=== PATIENT | female | born 1995 ===

== ENCOUNTER 2018-08-04 12:13 | Emergency (ER) | payer SELFPAY ==
[2018-08-04 12:19] VITALS: BMI 39.7
[2018-08-04 13:54] LABS: BASO % 0.1 % (0.0-2.0); EOS % 0.5 % (0.0-4.0); HEMOGLOBIN 14.2 g/dL (12.0-16.0); LYMPH # 2.5 K/uL (1.0-4.3); LYMPH % 27.9 % (20.0-40.0); MEAN CELL VOLUME 88.7 fl (81.0-99.0); MEAN CORPUSCULAR HEMOGLOBIN 29.8 pg (27.0-31.0); MEAN CORPUSCULAR HGB CONC 33.6 g/dL (33.0-37.0); MEAN PLATELET VOLUME 8.1 fl (7.2-11.7); MONO # 0.7 K/uL (0.0-0.8); MONO % 7.4 % (0.0-10.0); NEUT # 5.7 K/uL (1.8-7.0); NEUT % 64.1 % (50.0-75.0); NRBC % 0.1 % (0.0-0.0); RBC 4.78 Mil/uL (3.80-5.20); RED CELL DISTRIBUTION WIDTH 13.9 % (11.5-14.5)
[2018-08-04 14:12] LABS: ALB/GLOB RATIO 1.4 (1.0-2.1); ALBUMIN 4.3 g/dL (3.5-5.0); ALT/SGPT 78 U/L (9-52); AST/SGOT 49 U/L (14-36); BLOOD UREA NITROGEN 12 mg/dl (7-17); CALCIUM 9.5 mg/dL (8.4-10.2); GFR NON-AFRICAN AMERICAN > 60; LIPASE 58 U/L (23-300)
[2018-08-04] MEDS ORDERED: Alum-Mag Hydrox-Simethicone Susp (30 mL) PO ONE (14:17)
[2018-08-04] MEDS ORDERED: Sodium Chloride 0.9% 1,000 ML IV SCH (14:30)
[2018-08-04] MEDS ORDERED: Alum-Mag Hydrox-Simethicone Susp (30 mL) ONE (15:14)
--- NOTE | 2018-08-04 16:55 | US ---
Date of service: 08/04/2018 HISTORY: nausea, epigastric pain, r/o cholelithiasis COMPARISON: None. TECHNIQUE: Sonographic evaluation of the right upper quadrant of the abdomen. FINDINGS: LIVER: Measures 21.2 cm in length. There is diffuse increased echogenicity of the liver parenchyma. No mass. No intrahepatic bile duct dilatation. GALLBLADDER: The gallbladder is partially contracted. COMMON BILE DUCT: Measures 3.0 mm. No stones. No dilatation. PANCREAS: Unremarkable as visualized. No mass. No ductal dilatation. RIGHT KIDNEY: Measures 12.0 cm in length. Normal echogenicity. No calculus, mass, or hydronephrosis. AORTA: No aneurysmal dilatation. IVC: Unremarkable. OTHER FINDINGS: None. IMPRESSION: 1. The gallbladder is partially contracted which may be related to nonfasting status or chronic cholecystitis. No cholelithiasis or biliary dilatation. 2. Moderate hepatomegaly. 3. Diffuse increased echogenicity in the liver may reflect hepatic steatosis however parenchymal infectious/ inflammatory etiologies cannot be entirely excluded. Clinical and laboratory correlation is advised.
--- NOTE | 2018-08-04 17:40 | ED PDOC ---
HPI: Abdomen Time Seen by Provider: 08/04/18 12:34 Chief Complaint (Nursing): Headache Chief Complaint (Provider): headache, intermittent nausea and abd pain History Per: Patient History/Exam Limitations: no limitations Additional Complaint(s): 23y/o F with hx of seizures who presents with intermittent CARIAS, nausea and ab dominal pain for the past week. Pt states that she currently does not have a CARIAS but has had some intermittent nausea for the past week. Denies vomiting, diarrhea, fever, chills, night sweats. She has only taken Tylenol intermittently for the pain with no real improvement. Last BM was last night, normal. Further denies dysuria, urinary frequency, abnormal vaginal discharge, visual/speech/gait changes or weakness. Past Medical History Reviewed: Historical Data, Nursing Documentation, Vital Signs Vital Signs: Last Vital Signs Temp 98.1 F 08/04/18 12:19 Pulse 104 H 08/04/18 12:19 Resp 18 08/04/18 12:19 BP 160/92 H 08/04/18 12:19 Pulse Ox 99 08/04/18 12:19 - Medical History PMH: No Chronic Diseases, Seizures - Family History Family History: States: Unknown Family Hx - Immunization History Hx Tetanus Toxoid Vaccination: No Hx Influenza Vaccination: No Hx Pneumococcal Vaccination: No - Home Medications Home Medications: Ambulatory Orders Medication Instructions Recorded Famotidine [Pepcid] 20 mg PO BID 7 Days tab 08/04/18 - Allergies Allergies/Adverse Reactions: Allergies Allergy/AdvReac Type Severity Reaction Status Date / Time No Known Allergies Allergy Verified 08/04/18 13:28 Review of Systems Constitutional: Negative for: Fever, Chills Gastrointestinal: Positive for: Nausea, Abdominal Pain. Negative for: Vomiting, Diarrhea, Constipation Genitourinary Female: Negative for: Dysuria Neurological: Negative for: Weakness, Confusion, Altered Mental Status Physical Exam - Reviewed Nursing Documentation Reviewed: Yes Vital Signs Reviewed: Yes - Physical Exam Appears: Positive for: Well Skin: Positive for: Normal Color Cardiovascular/Chest: Positive for: Regular Rate, Rhythm Respiratory: Positive for: Normal Breath Sounds Gastrointestinal/Abdominal: Positive for: Soft, Tenderness (epigastric, RUQ and LUQ tenderness on palpation. ). Negative for: Mass, Distended, Guarding, Rebound Neurological/Psych: Positive for: Awake, Alert, Oriented - Laboratory Results Result Diagrams: 08/04/18 13:30 08/04/18 13:30 Lab Results: Total Bilirubin 0.4 mg/dl (0.2-1.3) 08/04/18 13:30 AST 49 U/L (14-36) H 08/04/18 13:30 ALT 78 U/L (9-52) H 08/04/18 13:30 Alkaline Phosphatase 66 U/L (38-126) 08/04/18 13:30 Total Protein 7.4 G/DL (6.3-8.2) 08/04/18 13:30 Albumin 4.3 g/dL (3.5-5.0) 08/04/18 13:30 Globulin 3.0 gm/dL (2.2-3.9) 08/04/18 13:30 Albumin/Globulin Ratio 1.4 (1.0-2.1) 08/04/18 13:30 Lipase 58 U/L (23-300) 08/04/18 13:30 - ECG O2 Sat by Pulse Oximetry: 99 Medical Decision Making Medical Decision Making: CBC, CMP, lipase Urine dip Urine preg Pepcid 20mg IV x 1 Maalox 30mL PO x 1 NS 1L IV x 1 Abdominal U/S, limited: FINDINGS: LIVER: Measures 21.2 cm in length. There is diffuse increased echogenicity of the liver parenchyma. No mass. No intrahepatic bile duct dilatation. GALLBLADDER: The gallbladder is partially contracted. COMMON BILE DUCT: Measures 3.0 mm. No stones. No dilatation. PANCREAS: Unremarkable as visualized. No mass. No ductal dilatation. RIGHT KIDNEY: Measures 12.0 cm in length. Normal echogenicity. No calculus, mass, or hydrone phrosis. AORTA: No aneurysmal dilatation. IVC: Unremarkable. OTHER FINDINGS: None. IMPRESSION: 1. The gallbladder is partially contracted which may be related to nonfasting status or chronic cholecystitis. No cholelithiasis or biliary dilatation. 2. Moderate hepatomegaly. 3. Diffuse increased echogenicity in the liver may reflect hepatic steatosis however parenchymal infectious/ inflammatory etiologies cannot be entirely excluded. Clinical and laboratory correlation is advised. 17:40: pain is unchanged, had a mild CARIAS and nausea. Toradol 30mg IV x 1 ordered and Lidocaine Viscous. Pt advised to follow up with primary care doctor or registered clinical dietitian for further evaluation and to take Pepcid and Maalox for abdominal pain. Disposition - Clinical Impression Clinical Impression: Abdominal pain - Patient ED Disposition Is Patient to be Admitted: No Counseled Patient/Family Regarding: Studies Performed, Diagnosis, Need For Followup - Disposition Referrals: [facility] [Outside] Disposition: Routine/Home Disposition Time: 18:10 Condition: STABLE Additional Instructions: Follow up with primary care doctor for further evaluation of pain and mildly elevated liver enzymes. Return to ER for worsening symptoms. Avoid acidic or spicy foods. Prescriptions: Famotidine [Pepcid] 20 mg PO BID 7 Days tab Instructions: Acute Abdomen (Belly Pain), Adult (DC), Nausea and Vomiting, Adult (DC) Forms: [employer] (E[place]ian) Print Language: DANISH
[2018-08-04 19:40] VITALS: BP 122/70; PULSE 78; RESP 17; TEMP 98.4
[2018-08-04 22:49] VITALS: O2SAT 99
--- NOTE | 2018-08-04 23:45 | CARD ---
APPROVED REPORT Date of service: 08/04/2018 EKG Measurement Heart [id number] <Conclusion> Normal sinus rhythm with sinus arrhythmia Normal ECG
== END 2018-08-04 18:10 | disposition home or self-care (01) ==
LOC: H.ER 12:13
DX: R10.9 Unspecified abdominal pain (principal)
CPT/HCPCS: 76705; 80053; 81025; 83690; 85025; 93005; 96374; 96375; 99285; J1885; J7030